=== PATIENT | male | born 1970 | race Caucasian/White ===

== ENCOUNTER 2016-10-13 08:52 | Outpatient (CLI) | payer OTHER | END 2016-10-13 08:53 | disposition home or self-care (01) | LOC: SC 08:52 | PROVIDERS: ATTEND Specialist | DX: G47.30 Sleep apnea, unspecified (principal); G47.8 Other sleep disorders; R06.83 Snoring; G47.10 Hypersomnia, unspecified | CPT/HCPCS: 99204; 99212 ==

== ENCOUNTER 2016-11-19 09:17 | Outpatient (CLI) | payer OTHER | END 2016-11-19 09:18 | disposition home or self-care (01) | LOC: SC 09:17 | PROVIDERS: ATTEND Nurse Practitioner Family | DX: G47.30 Sleep apnea, unspecified (principal); G47.8 Other sleep disorders; R06.83 Snoring | CPT/HCPCS: 99212; 99214 ==

== ENCOUNTER 2017-01-13 09:19 | Outpatient (CLI) | payer OTHER | END 2017-01-13 09:20 | disposition home or self-care (01) | LOC: SC 09:19 | PROVIDERS: ATTEND Nurse Practitioner Family | DX: G47.33 Obstructive sleep apnea (adult) (pediatric) (principal) | CPT/HCPCS: 99212; 99215 ==

== ENCOUNTER 2017-03-01 09:56 | Outpatient (CLI) | payer OTHER | END 2017-03-01 09:57 | disposition home or self-care (01) | LOC: SC 09:56 | PROVIDERS: ATTEND Nurse Practitioner Family | DX: G47.33 Obstructive sleep apnea (adult) (pediatric) (principal) | CPT/HCPCS: 99212; 99214 ==

== ENCOUNTER 2017-05-31 09:40 | Outpatient (CLI) | payer OTHER | END 2017-05-31 09:41 | disposition home or self-care (01) | LOC: SC 09:40 | PROVIDERS: ATTEND Nurse Practitioner Family | DX: G47.33 Obstructive sleep apnea (adult) (pediatric) (principal) | CPT/HCPCS: 99212; 99214 ==